=== PATIENT | female | born 1960 | race Caucasian/White ===

== ENCOUNTER → 2023-04-24 09:10 | Outpatient (REF) | payer BC, SELFPAY | LOC: HWRAD 09:10 | PROVIDERS: ATTENDING PHYSICIAN Physician Assistant; FAMILY PHYSICIAN Nurse Practitioner Family | DX: E83.52 Hypercalcemia (principal); E55.9 Vitamin D deficiency, unspecified; E34.9 Endocrine disorder, unspecified | CPT/HCPCS: 77080; 77081 ==

== ENCOUNTER → 2023-05-01 07:11 | Outpatient (REF) | payer BC, SELFPAY | LOC: RAD 07:11 | PROVIDERS: ATTENDING PHYSICIAN Physician Assistant; FAMILY PHYSICIAN Nurse Practitioner Family | DX: E83.52 Hypercalcemia (principal); E59 Dietary selenium deficiency; E34.9 Endocrine disorder, unspecified | CPT/HCPCS: 76536; 78071; A9500 ==

== ENCOUNTER → 2023-05-27 10:05 | Outpatient (REF) | payer BC, SELFPAY ==
[2023-05-27 10:40] VITALS: BP 153/75; BP_SYST 65
== END ==
LOC: RADI 10:05
PROVIDERS: ATTENDING PHYSICIAN Nurse Practitioner Family
DX: E04.1 Nontoxic single thyroid nodule (principal)
CPT/HCPCS: 88173; 10005

== ENCOUNTER → 2023-07-31 11:48 | Outpatient (REF) | payer BC, SELFPAY | LOC: HWWDC 11:48 | PROVIDERS: ATTENDING PHYSICIAN Nurse Practitioner Family | DX: Z12.31 Encounter for screening mammogram for malignant neoplasm of breast (principal) | CPT/HCPCS: 77063; 77067 ==

== ENCOUNTER → 2023-08-03 10:07 | Outpatient (REF) | payer BC, SELFPAY | LOC: HWRAD 10:07 | PROVIDERS: ATTENDING PHYSICIAN Nurse Practitioner Family | DX: M54.12 Radiculopathy, cervical region (principal) | CPT/HCPCS: 72050 ==

== ENCOUNTER 2023-08-25 06:08 | Day surgery (SDC) | payer BC, SELFPAY ==
[2023-08-20 07:28] VITALS: BMI 37.4
[2023-08-20 09:02] LABS: INR 0.94; PT 12.6 Sec (11.4-14.6)
[2023-08-20 09:03] LABS: APTT 26.1 Sec (23.4-35.0)
[2023-08-20 09:16] LABS: Hematocrit 31.3 % (37.0-47.0); Hemoglobin 9.5 g/dL (12.0-16.0); Mean Corp Hgb Conc. 30.4 g/dL (33.0-37.0); Mean Corpuscular Hgb 23.1 pg (27.0-31.0); Mean Corpuscular Volume 76.2 fL (81.0-99.0); Platelet Count 319 10^3/uL (130-400); Red Blood Cell Count 4.11 10^6/uL (4.20-5.40); White Blood Cell Count 3.9 10^3/uL (4.8-10.8)
[2023-08-20 09:26] LABS: ALT (SGPT) 26 U/L (0-35); AST (SGOT) 34 U/L (14-36); Albumin 4.1 g/dl (3.5-5.0); Alkaline Phosphatase 104 U/L (38-126); Blood Urea Nitrogen 10 mg/dl (7-17); Carbon Dioxide 29 mmol/L (22-30); Chloride 104 mmol/L (98-107); Estimated Creatinine Clearance > 125 ml/min; Glucose 92 mg/dl (70-99); Potassium 5.1 mmol/L (3.5-5.1); Sodium 137 mmol/L (135-145); Total Bilirubin 0.6 mg/dl (0.2-1.3); Total Protein 6.5 g/dl (6.3-8.2); eGFR > 60.00
--- NOTE | 2023-08-21 10:00 | SUR.OPER ---
Patients 08/19 hgb 9.5, Eli @ Dr. Moreno office notified
--- NOTE | 2023-08-21 14:14 | PTCARENOTE ---
Dr. Siegel notified of patients 9.5 hgb collected 08/19- no additional interventions required
[2023-08-25] VITALS (14 sets, daily range): BP systolic 100–140; BP diastolic 36–78; BMI 37.4
[2023-08-25] MEDS: NEURONTIN 300 MG PO (06:38)
[2023-08-25] MEDS: TYLENOL 1000 MG PO (06:38)
[2023-08-25] MEDS: NORMOSOL-R 1000 IV (06:38)
[2023-08-25] MEDS: HEPARIN 5000 UNITS SC (06:39)
[2023-08-25 08:31] LABS: Turbo PTH 221.8 pg/ml (13.6-85.8)
[2023-08-25 10:01] LABS: Turbo PTH 165.1 pg/ml (13.6-85.8)
[2023-08-25 10:21] LABS: Turbo PTH 32.8 pg/ml (13.6-85.8)
[2023-08-25] MEDS: SUBLIMAZE 25 MCG IV ×2 (10:34→10:52)
--- NOTE | 2023-08-25 10:47 | OR.RPT ---
Operative Report
Operative Report
Patient Name: Tina Rogers
Date of : 1960
Date of Operation: August 25, 2023
Preoperative Diagnosis: �Hyperparathyroidism - E210
Postoperative Diagnosis: Same
Surgeon: Jacobo Larson M.D.
Operation: Neck exploration, right inferior, superior, and left inferior parathyroidectomy - 19616
Anesthesia: GET
Estimated Blood Loss: 10 cc
Drains: None
Specimen: �right superior and inferior, left inferior neck nodules, rule out parathyroid adenomas
Complications: �None
Procedure:
The patient was taken to the operating room and placed in the usual supine position. After adequate general endotracheal anesthesia was established, the patient's neck was extended, prepped, and draped in the typical sterile fashion. A 4 cm
transcervical incision was made two fingerbreadths above the sternal notch. The skin incision was made with the #15 blade, and this was taken through the skin into the subcutaneous tissue. The underlying platysma muscle was divided, and subplatysmal
flaps were created superiorly to the thyroid cartilage and inferiorly to the sternal notch. Strap muscles were identified and at the midline.
Attention was turned to the patient's right side of the neck. The right thyroid lobe was mobilized medially. During this process, the right recurrent laryngeal nerve was identified and preserved throughout the surgery. The right upper neck nodule
was identified and noted to be enlarged, excised, and sent to the pathology department, which showed a hypercellular parathyroid gland, but the intraoperative PTH levels failed to normalized. Therefore, somewhat enlarged right inferior parathyroid
gland was excised. Unfortunately, the PTH level remained high.
The attention was turned to the left side of the neck. The left thyroid lobe was mobilized medially. During this process, the left recurrent laryngeal nerve was identified and preserved throughout the surgery. The two abutting left lower neck
nodules were identified and noted to be enlarged, excised, and sent to the pathology department, which showed a hypercellular parathyroid gland. The intraoperative PTH levels normalized.fter obtaining adequate hemostasis, the strap muscles were
reapproximated with #3-0 Vicryl in a running fashion. The platysma muscle was reapproximated with #3-0 Vicryl in an interrupted fashion, and the skin was approximated with #4-0 Monocryl in a running subcuticular fashion. The Steri-Strips and sterile
dressings were placed. The patient tolerated the procedure well. The final instrument, needle, and sponge counts were correct. The patient was extubated and transferred to the PACU.
== END 2023-08-25 13:35 | disposition home or self-care (01) ==
LOC: SDS 06:08
PROVIDERS: ATTENDING PHYSICIAN Surgery; FAMILY PHYSICIAN Nurse Practitioner Family; OTHER PHYSICIAN Family Medicine
DX: D35.1 Benign neoplasm of parathyroid gland (principal); E21.3 Hyperparathyroidism, unspecified
CPT/HCPCS: 60500; 88305; 88332; 36415; 80053; 83970; 85027; 85610; 85730; 88331; 93005

== ENCOUNTER 2023-09-15 16:38 | Emergency (ER) | payer BC, SELFPAY ==
[2023-09-15 17:04] LABS: % Basophils 0.7 % (0-2); % Eosinophils 2.1 % (0-6); % Immature Granulocytes 0.1 % (0-0.5); % Lymphocytes 33.1 % (20.5-51.1); % Monocytes 9.9 % (1.7-9.3); % Neutrophils 54.1 % (42.2-75.2); Absolute Basophils 0.1 10^3/uL (0-0.2); Absolute Eosinophils 0.2 10^3/uL (0-0.7); Absolute Lymphocytes 2.3 10^3/uL (1.2-3.4); Absolute Monocytes 0.7 10^3/uL (0.1-0.6); Absolute Neutrophils 3.8 10^3/uL (1.4-6.5); Hematocrit 30.7 % (37.0-47.0); Hemoglobin 9.6 g/dL (12.0-16.0); Mean Corp Hgb Conc. 31.3 g/dL (33.0-37.0); Mean Corpuscular Hgb 22.9 pg (27.0-31.0); Mean Corpuscular Volume 73.1 fL (81.0-99.0); Mean Platelet Volume 10.1 fL (7.4-10.4); Nucleated Red Blood Cells % 0 %; Platelet Count 467 10^3/uL (130-400); Red Cell Dist. Width 16.9 % (11.5-14.5); White Blood Cell Count 7.1 10^3/uL (4.8-10.8)
[2023-09-15 17:14] LABS: ALT (SGPT) 36 U/L (0-35); AST (SGOT) 32 U/L (14-36); Albumin 4.4 g/dl (3.5-5.0); Alkaline Phosphatase 165 U/L (38-126); Blood Urea Nitrogen 18 mg/dl (7-17); Calcium 9.7 mg/dl (8.4-10.2); Carbon Dioxide 23 mmol/L (22-30); Chloride 104 mmol/L (98-107); Glucose 99 mg/dl (70-99); Potassium 5.3 mmol/L (3.5-5.1); Sodium 135 mmol/L (135-145); Total Bilirubin 0.6 mg/dl (0.2-1.3); Total Protein 7.2 g/dl (6.3-8.2); eGFR > 60.00
[2023-09-15 17:30] LABS: Erythrocyte Sed Rate 45 mm/hour (0-20)
[2023-09-15 19:24] LABS: C-Reactive Protein < 5.00 mg/L (0.0-10.00)
[2023-09-15 19:46] VITALS: BP 145/89
[2023-09-15] MEDS: MOTRIN 600 MG PO (20:09)
--- NOTE | 2023-09-15 20:31 | ED.GENMED ---
History of Present Illness
<Gloria Grant NP - Last Filed: 09/15/23 23:13>
General
Chief Complaint: Musculo-Skeletal Complaint
Source: patient
Exam Limitations: none
Time Seen by Provider: 09/15/23 17:49
Nursing documentation reviewed up to this point in time: agreed with
History of Present Illness
History of Present Illness:
Patient to ED wtih complaint of rash to bilateral lower legs, pain and swelling to right ankle. Symptoms started 3 days ago. Denies fever/chills. No prior history of same. Brought to ED by spouse for eval.
Past History
<Gloria Grant NP - Last Filed: 09/15/23 23:13>
Past History
ED Past Medical History: Psychiatric (depr) and Other (anemia, urinary freq/urgency, OA)
ED Past Surgical History: Gynecological, Urological and Other (Gastric bypass, incisional hernia with mesh also hernia mesh repair and removal)
Social History
Tobacco: Non-smoker
Alcohol: Occasional
Drug: None
Personal:
Living: with family
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
Family History
Family History: Other (Stroke, hypertension, diabetes in her father thyroid cancer and a CVA in her mother)
Review of Systems
<Gloria Garnt NP - Last Filed: 09/15/23 23:13>
Review of Systems
Allergies reviewed?: Yes
All Other Systems: ROS reviewed and negative except as documented in HPI and ROS
Constitutional: Reports no symptoms
EENT: Reports no symptoms
Respiratory: Reports no symptoms
Cardiac: Reports no symptoms
ABD/GI: Reports no symptoms
: Reports no symptoms
Musculoskeletal: Reports joint pain (pain and swelling to right ankle)
Skin: Reports other (red, raised patches to bilateral lower legs. Appearance of insect bites. No pain or itching.)
Neurological: Reports no symptoms
Psychiatric: Reports no symptoms
Phy Exam
<Gloria Grant NP - Last Filed: 09/15/23 23:13>
General Physical Exam
General Presentation: mild distress
General age: appears stated age
General Skin: warm and dry
General Habitus: normal
General Mental: alert
Cardiovascular Exam
Cardiovascular Exam: regular rate/rhythm
Pulmonary Exam
Pulmonary Exam: no respiratory distress and chest non tender
Musculoskeletal Exam
Musculoskeletal Exam: neuro vasc intact and other (right lat ankle pain and swelling. Achilles intact. No foot pain.)
Skin Exam
Skin Exam: other (BLE with scattered red raised patches similar to the appearance of insect bites. No pain or itching. No discharge.)
Psychiatric Exam
Psychiatric Exam: normal mood/affect
Course
<Gloria Grant [employer]ING [employer]ACHER - Last Filed: 09/15/23 23:13>
Orders/Labs/Results
Orders:
Orders
09/15/23 16:52
C-Reactive Protein Urgent
Comment: ADD ON
Complete Blood Count/With Diff Urgent
Comprehensive Metabolic Panel Urgent
Sed Rate [Erythrocyte Sed Rate] Urgent
09/15/23 18:25
Add On- LAB Urgent
Tests Added?: sed rate, crp
09/15/23 18:26
US Periph Venous LOWER Ext RT Urgent
Comment:
Reason For Exam: pain and swellling RLE
09/15/23 20:00
Ibuprofen [Motrin] 600 mg PO NOW STA
09/15/23 20:29
Cephalexin Monohydrate [Keflex] 500 mg PO NOW STA
Dexamethasone Pf [Decadron] 10 mg PO NOW STA
Abnormal Lab Results
09/15/23
16:52
Hgb 9.6 L g/dL
(12.0-16.0)
Hct 30.7 L %
(37.0-47.0)
MCV 73.1 L fL
(81.0-99.0)
MCH 22.9 L pg
(27.0-31.0)
MCHC 31.3 L g/dL
(33.0-37.0)
RDW 16.9 H %
(11.5-14.5)
Plt Count 467 H 10^3/uL
(130-400)
Absolute Monos (auto) 0.7 H 10^3/uL
(0.1-0.6)
Monocytes % 9.9 H %
(1.7-9.3)
ESR 45 H mm/hour
(0-20)
Potassium 5.3 H mmol/L
(3.5-5.1)
BUN 18 H mg/dl
(7-17)
ALT 36 H U/L
(0-35)
Alkaline Phosphatase 165 H U/L
(38-126)
09/15/23 16:52
09/15/23 16:52
Vital Signs
Initial and Last Documented VS:
Initial Vital Signs
Temp Pulse Resp Pulse Ox
98.1 F 85 16 100
09/15/23 16:44 09/15/23 16:44 09/15/23 16:44 09/15/23 16:44
Last Documented Vital Signs
Temp Pulse Resp BP Pulse Ox
98.1 F 77 18 133/74 96
09/15/23 16:44 09/15/23 20:55 09/15/23 20:55 09/15/23 20:55 09/15/23 20:55
<Josefa Curran, DO - Last Filed: 09/16/23 19:08>
Orders/Labs/Results
Orders:
Orders
09/15/23 16:52
C-Reactive Protein Urgent
Comment: ADD ON
Complete Blood Count/With Diff Urgent
Comprehensive Metabolic Panel Urgent
Sed Rate [Erythrocyte Sed Rate] Urgent
09/15/23 18:25
Add On- LAB Urgent
Tests Added?: sed rate, crp
09/15/23 18:26
US Periph Venous LOWER Ext RT Urgent
Comment:
Reason For Exam: pain and swellling RLE
09/15/23 20:00
Ibuprofen [Motrin] 600 mg PO NOW STA
09/15/23 20:29
Cephalexin Monohydrate [Keflex] 500 mg PO NOW STA
Dexamethasone Pf [Decadron] 10 mg PO NOW STA
Abnormal Lab Results
09/15/23
16:52
Hgb 9.6 L g/dL
(12.0-16.0)
Hct 30.7 L %
(37.0-47.0)
MCV 73.1 L fL
(81.0-99.0)
MCH 22.9 L pg
(27.0-31.0)
MCHC 31.3 L g/dL
(33.0-37.0)
RDW 16.9 H %
(11.5-14.5)
Plt Count 467 H 10^3/uL
(130-400)
Absolute Monos (auto) 0.7 H 10^3/uL
(0.1-0.6)
Monocytes % 9.9 H %
(1.7-9.3)
ESR 45 H mm/hour
(0-20)
Potassium 5.3 H mmol/L
(3.5-5.1)
BUN 18 H mg/dl
(7-17)
ALT 36 H U/L
(0-35)
Alkaline Phosphatase 165 H U/L
(38-126)
08/06/24 16:52
09/15/23 16:52
Vital Signs
Initial and Last Documented VS:
Initial Vital Signs
Temp Pulse Resp Pulse Ox
98.1 F 85 16 100
09/15/23 16:44 09/15/23 16:44 09/15/23 16:44 09/15/23 16:44
Last Documented Vital Signs
Temp Pulse Resp BP Pulse Ox
98.1 F 77 18 133/74 96
09/15/23 16:44 09/15/23 20:55 09/15/23 20:55 09/15/23 20:55 09/15/23 20:55
<Gloria Grant NP - Last Filed: 09/15/23 23:13>
*Radiology
Radiology exam reviewed: radiology read reviewed
*Pulse Oximetry
Patient hypoxic: no
*Critical Care Note
Total Time (30-74mins, 75-104mins- exclusive of procedures): Not Applicable
<Gloria Grant NP - Last Filed: 09/15/23 23:13>
Update Note
Update Note:
Case discussed with Dr. Curran who also evaluated this patient. Labs, imaging reviewed. No findings to explain her symptoms. She remains afebrile. Non toxic appearing. Given dose of decadron in dept and will continue prednisone taper. Placed on
Keflex 500mg tid. She is discharged home, close followup with PCP. Given instructions on s/s to return to ED and she is agreeable to plan.
ED Attending Note
<Gloria Grant NP - Last Filed: 09/15/23 23:13>
-
Portions of this chart may have been created with voice recognition software.� Occasional wrong word or��sound alike� substitutions may have occurred due to the inherent limitations of voice recognition software.
<Josefa Curran DO - Last Filed: 09/16/23 19:08>
ED Attending Note
Patient seen and examined by attending physician: Yes
I performed the substantive portion of visit, reviewed & personally made and approve the management plan that is documented in note by myself or ERON.: Yes
I performed a history and physical exam of patient and discussed management with resident, I reviewed resident's note and agree with documented findings and plan of care.: Yes
ED Attending Note:
Patient seen and evaluated at bedside, 63-year-old female presenting with rash to bilateral lower extremities with swelling and pain to the ankle. Patient reports she noticed red lesions about 4 days ago which have since been worsening. She is not
having swelling to her right ankle, increased pain, particular the ambulation. Denies any new exposures or time outside, or any known bug bites. Denies ever having this in the past. Denies any new detergents or ingestion of foods. Denies any
itching. Denies any fever systemic symptoms. Vital signs within normal limits.
On exam, patient is very well-appearing, nontoxic. On examination of her lower extremities, multiple red circumferential lesions. Appear consistent with urticaria versus potential bug bite such as mosquito bite. Slightly tender to palpation.
Increased welling to the right lower extremity comparison to left lower extremity, particularly at the ankle. Range of motion however is intact with distal sensation and pulses intact. Suspect contact dermatitis versus allergic component to
symptoms, versus reaction to bug bite. Erythema dose up is also consideration. Patient denies any throat pain. No additional systemic symptoms or clear sign of bacterial infection. Given asymmetrical swelling, ultrasound obtained to rule out
DVT, which is negative. Patient had screening laboratory analysis, no leukocytosis, normal inflammatory marker. Without present concern for a septic joint arthritis. Plan for oral steroid and Keflex in the event of possible infectious component
given swelling. Patient agreeable plan. Advise close follow-up for reassessment to ensure interval improvement. Patient verbalized understanding
Discharge Plan
Departure
Patient Disposition: Home (Routine Discharge)
Date of Disposition: 09/15/23
Time of Disposition: 20:30
Patient with high blood pressure during this ER visit?: No
Condition: Good
Covid-19: Not Applicable
Discharge Problem:
Rash, skin, Swelling of ankle
Instructions: Skin Rash ED
Prescriptions:
New
cephalexin 500 mg capsule
500 mg PO TID 10 Days Qty: 30 0RF
No Action
trazodone 50 MG tablet
50 mg PO HS
mirabegron [Myrbetriq] 50 MG tablet extended release 24 hr
50 mg PO DAILY
montelukast 10 mg Tablet
10 mg PO HS
doxycycline hyclate 20 mg Tablet
20 mg PO BID
solifenacin 10 mg Tablet
10 mg PO DAILY
Referrals:
Tom Simeon CRNP [Family Provider] - Follow up in 2-3 days
Stand Alone Forms: Return to Work
Activity Restrictions/Additional Instructions:
Return to the emergency department immediately for any changes in/worsening of your symptoms
Interventions
Interventions:
*Risk Screen - Suicide Last Done: 09/15/23 16:44
*General Assessment Last Done: 09/15/23 17:38
*Neglect/Abuse Screening Last Done: 09/15/23 16:44
ED- Fall Risk Assessment Last Done: 09/15/23 16:44
*ED COVID-19 Vaccine History Last Done: 09/15/23 16:44
*Nursing Disposition Last Done: 09/15/23 20:55
ED-Musculoskeletal Assessment Last Done: 09/15/23 17:38
Discharge Date and Time
Discharge Date/Time: 09/15/23 20:56
Print Language: LAO
[2023-09-15] MEDS: KEFLEX 500 MG PO (20:48)
[2023-09-15] MEDS: DECADRON 10 MG PO (20:48)
[2023-09-15 20:53] VITALS: BP 133/74
[2023-09-15 20:55] VITALS: BP 133/74
== END 2023-09-15 20:56 | disposition home or self-care (01) ==
LOC: EMR 16:38
PROVIDERS: EMERGENCY PHYSICIAN Student in an Organized Health Care Education/Training Program; FAMILY PHYSICIAN Nurse Practitioner Family
DX: R21 Rash and other nonspecific skin eruption (principal); R22.41 Localized swelling, mass and lump, right lower limb; Z82.3 Family history of stroke; Z82.49 Family history of ischemic heart disease and other diseases of the circulatory system; Z83.3 Family history of diabetes mellitus; Z98.84 Bariatric surgery status
CPT/HCPCS: 99284; 80053; 85025; 85652; 86140; 93971

== ENCOUNTER → 2023-09-16 14:19 | Outpatient (REF) | payer BC, SELFPAY | LOC: HWRAD 14:19 | PROVIDERS: ATTENDING PHYSICIAN Nurse Practitioner Family | DX: R21 Rash and other nonspecific skin eruption (principal) | CPT/HCPCS: 71046 ==

== ENCOUNTER → 2023-12-07 06:40 | Day surgery (SDC) | payer BC, SELFPAY | LOC: GI 06:40 | PROVIDERS: ATTENDING PHYSICIAN Internal Medicine | DX: D50.9 Iron deficiency anemia, unspecified (principal); K57.30 Diverticulosis of large intestine without perforation or abscess without bleeding; K64.9 Unspecified hemorrhoids; E53.8 Deficiency of other specified B group vitamins; Z98.84 Bariatric surgery status; Z98.0 Intestinal bypass and anastomosis status; K29.50 Unspecified chronic gastritis without bleeding | CPT/HCPCS: 45378; 43239; 88305; 88342 ==

== ENCOUNTER → 2023-12-12 08:20 | Outpatient (REF) | payer BC, SELFPAY | LOC: RAD 08:20 | PROVIDERS: ATTENDING PHYSICIAN Internal Medicine; FAMILY PHYSICIAN Nurse Practitioner Family | DX: T18.9XXA Foreign body of alimentary tract, part unspecified, initial encounter (principal) | CPT/HCPCS: 74019 ==

== ENCOUNTER → 2023-12-31 08:56 | Outpatient (REF) | payer BC, SELFPAY | LOC: HWRAD 08:56 | PROVIDERS: ATTENDING PHYSICIAN Physician Assistant; FAMILY PHYSICIAN Nurse Practitioner Family | DX: L52 Erythema nodosum (principal); M79.89 Other specified soft tissue disorders; R76.8 Other specified abnormal immunological findings in serum | CPT/HCPCS: 73610; 73630; 93970 ==

== ENCOUNTER → 2024-01-27 18:13 | Outpatient (REF) | payer BC, SELFPAY | LOC: MRI 3T 18:13 | PROVIDERS: ATTENDING PHYSICIAN Internal Medicine; FAMILY PHYSICIAN Nurse Practitioner Family | DX: L52 Erythema nodosum (principal); D50.9 Iron deficiency anemia, unspecified; Z87.19 Personal history of other diseases of the digestive system | CPT/HCPCS: 72197; 74183; A9585 ==

== ENCOUNTER → 2024-02-05 12:34 | Outpatient (REF) | payer BC, SELFPAY | LOC: HWRAD 12:34 | PROVIDERS: ATTENDING PHYSICIAN Physician Assistant; FAMILY PHYSICIAN Nurse Practitioner Family | DX: M77.42 Metatarsalgia, left foot (principal); M79.89 Other specified soft tissue disorders | CPT/HCPCS: 73700 ==

== ENCOUNTER → 2024-03-11 08:41 | Outpatient (REF) | payer BC, SELFPAY ==
[2024-03-11 08:58] LABS: % Basophils 0.5 % (0-2); % Eosinophils 2.8 % (0-6); % Immature Granulocytes 0.3 % (0-0.5); % Lymphocytes 41.1 % (20.5-51.1); % Monocytes 9.3 % (1.7-9.3); Absolute Eosinophils 0.1 10^3/uL (0-0.7); Absolute Lymphocytes 1.6 10^3/uL (1.2-3.4); Absolute Monocytes 0.4 10^3/uL (0.1-0.6); Absolute Neutrophils 1.8 10^3/uL (1.4-6.5); Hematocrit 40.5 % (37.0-47.0); Hemoglobin 13.3 g/dL (12.0-16.0); Mean Corp Hgb Conc. 32.8 g/dL (33.0-37.0); Mean Corpuscular Hgb 30.6 pg (27.0-31.0); Mean Corpuscular Volume 93.3 fL (81.0-99.0); Mean Platelet Volume 10.9 fL (7.4-10.4); Platelet Count 298 10^3/uL (130-400); Red Blood Cell Count 4.34 10^6/uL (4.20-5.40); Red Cell Dist. Width 13.1 % (11.5-14.5)
== END ==
LOC: OIDL 08:41
PROVIDERS: ATTENDING PHYSICIAN Nurse Practitioner Adult Health
DX: D50.9 Iron deficiency anemia, unspecified (principal); E53.9 Vitamin B deficiency, unspecified
CPT/HCPCS: 85025

== ENCOUNTER → 2024-03-25 11:27 | Outpatient (REF) | payer BC, SELFPAY ==
[2024-03-25 08:54] LABS: % Basophils 0.4 % (0-2); % Eosinophils 1.3 % (0-6); % Lymphocytes 37.9 % (20.5-51.1); % Monocytes 7.1 % (1.7-9.3); % Neutrophils 53.3 % (42.2-75.2); Absolute Eosinophils 0.1 10^3/uL (0-0.7); Absolute Lymphocytes 1.8 10^3/uL (1.2-3.4); Absolute Monocytes 0.3 10^3/uL (0.1-0.6); Absolute Neutrophils 2.5 10^3/uL (1.4-6.5); Hematocrit 42.9 % (37.0-47.0); Mean Corp Hgb Conc. 32.6 g/dL (33.0-37.0); Mean Corpuscular Hgb 31.3 pg (27.0-31.0); Mean Corpuscular Volume 95.8 fL (81.0-99.0); Mean Platelet Volume 10.8 fL (7.4-10.4); Platelet Count 288 10^3/uL (130-400); Red Blood Cell Count 4.48 10^6/uL (4.20-5.40); White Blood Cell Count 4.7 10^3/uL (4.8-10.8)
== END ==
LOC: OIDL 11:27
PROVIDERS: ATTENDING PHYSICIAN Nurse Practitioner Adult Health
DX: D50.9 Iron deficiency anemia, unspecified (principal)
CPT/HCPCS: 85025

== ENCOUNTER → 2024-04-15 10:08 | Outpatient (REF) | payer BC, SELFPAY | LOC: HWRAD 10:08 | PROVIDERS: ATTENDING PHYSICIAN Nurse Practitioner Family | DX: M25.551 Pain in right hip (principal); R20.2 Paresthesia of skin | CPT/HCPCS: 72110; 73502 ==

== ENCOUNTER 2024-05-11 10:56 | Emergency (ER) | payer BC, SELFPAY ==
[2024-05-11 11:04] VITALS: BP 163/88
[2024-05-11 11:59] VITALS: BMI 40.5
[2024-05-11 12:11] VITALS: BP 144/63
[2024-05-11 12:24] LABS: % Basophils 0.8 % (0-2); % Eosinophils 1.3 % (0-6); % Lymphocytes 49.6 % (20.5-51.1); % Monocytes 5.9 % (1.7-9.3); % Neutrophils 42.4 % (42.2-75.2); Absolute Eosinophils 0.1 10^3/uL (0-0.7); Absolute Lymphocytes 1.9 10^3/uL (1.2-3.4); Absolute Monocytes 0.2 10^3/uL (0.1-0.6); Absolute Neutrophils 1.7 10^3/uL (1.4-6.5); Hematocrit 40.6 % (37.0-47.0); Hemoglobin 13.7 g/dL (12.0-16.0); Mean Corp Hgb Conc. 33.7 g/dL (33.0-37.0); Mean Corpuscular Hgb 31.5 pg (27.0-31.0); Mean Corpuscular Volume 93.3 fL (81.0-99.0); Mean Platelet Volume 11.3 fL (7.4-10.4); Nucleated Red Blood Cells % 0 %; Platelet Count 252 10^3/uL (130-400); Red Blood Cell Count 4.35 10^6/uL (4.20-5.40); Red Cell Dist. Width 12.6 % (11.5-14.5); White Blood Cell Count 3.9 10^3/uL (4.8-10.8)
[2024-05-11 12:35] LABS: ALT (SGPT) 39 U/L (0-35); AST (SGOT) 33 U/L (14-36); Albumin 4.2 g/dl (3.5-5.0); Alkaline Phosphatase 98 U/L (38-126); Blood Urea Nitrogen 13 mg/dl (7-17); Calcium 9.2 mg/dl (8.4-10.2); Carbon Dioxide 30 mmol/L (22-30); Chloride 104 mmol/L (98-107); Estimated Creatinine Clearance > 125 ml/min; Glucose 95 mg/dl (70-99); Potassium 4.4 mmol/L (3.5-5.1); Sodium 141 mmol/L (135-145); Total Bilirubin 0.7 mg/dl (0.2-1.3); Total Protein 6.6 g/dl (6.3-8.2); eGFR > 60.00
[2024-05-11 12:46] LABS: Troponin I < 0.012 ng/ml
[2024-05-11 13:00] VITALS: BP 147/82
--- NOTE | 2024-05-11 13:02 | ED.GENMED ---
History of Present Illness
General
Chief Complaint: Numbness
Source: patient
Exam Limitations: none
Time Seen by Provider: 05/11/24 12:23
Nursing documentation reviewed up to this point in time: agreed with
History of Present Illness
History of Present Illness:
Patient is a 63-year-old female with past medical history of hyperparathyroidism, status post parathyroidectomy August/2023, erythema nodosum who presents to the ER for evaluation she was awoken this morning at 4 AM with sudden right arm numbness
tingling and pain. She got a shower thinking that would relieve her symptoms and then at 5:30 AM she had symptoms radiate to her left arm. She now reports she has sharp pins and needle and numb feeling that are causing a lot of pain to both of her
arms. She does feel tired and nauseous from this. She denies any weakness. She denies any symptoms to legs. She denies any headache. She recently had parathyroid surgery in August .
Past History
Past History
ED Past Medical History: Psychiatric (depr) and Other (anemia, urinary freq/urgency, OA)
ED Past Surgical History: Gynecological, Urological and Other (Gastric bypass, incisional hernia with mesh also hernia mesh repair and removal)
Social History
Tobacco: Non-smoker
Alcohol: Occasional
Drug: None
Personal:
Living: with family
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
Family History
Family History: Other (Stroke, hypertension, diabetes in her father thyroid cancer and a CVA in her mother)
Review of Systems
Review of Systems
Allergies reviewed?: Yes
All Other Systems: ROS reviewed and negative except as documented in HPI and ROS
Constitutional: Reports no symptoms; Denies fever, fatigue or chills
Respiratory: Reports no symptoms
Cardiac: Reports no symptoms; Denies chest pain or palpitations
ABD/GI: Reports no symptoms
: Reports no symptoms
Musculoskeletal: Reports no symptoms
Skin: Reports no symptoms
Neurological: Reports numbness (numbness 'burning pain' to b/l arms and hands; denies extremity weakness )
Psychiatric: Reports no symptoms
Phy Exam
General Physical Exam
General Presentation: no apparent distress
General age: appears stated age
General Skin: warm and dry
General Habitus: normal
General Mental: alert
General Hydration: appears well hydrated
ENT Exam
ENT Exam: EOMI
Eye Exam
Eye Exam: PERRL and EOMI
Eye Exam General: PERRL: bilateral and EOM intact: bilateral
Pupil Exam: Bilateral: round and reactive
Cardiovascular Exam
Cardiovascular Exam: regular rate/rhythm, no murmur and normal peripheral pulses
Pulmonary Exam
Pulmonary Exam: lungs clear and no respiratory distress
Neurological Exam
Neurological Exam: alert, oriented x3, no motor deficits, no sensory deficits and other (Intact strength and sensation to bilateral lower extremities)
[place] Coma Scale
Eye Opening: Spontaneous
Verbal Response: Oriented
Motor Response: Obeys Commands
GCS Total Score: 15
Cerebellar
Cerebellar Function: normal finger to nose
Musculoskeletal Exam
Musculoskeletal Exam: full ROM
Skin Exam
Skin Exam: normal color and warm/dry
Psychiatric Exam
Psychiatric Exam: normal mood/affect
Course
Orders/Labs/Results
Orders:
Orders
05/11/24 10:58
ECG [Electrocardiogram (*1)] Urgent
Reason for Study: Chest Pain
EKG- Treatment ONCE
05/11/24 12:14
C-Reactive Protein Urgent
Comment: ADD ON
CMP [Comprehensive Metabolic Panel] Urgent
Complete Blood Count/With Diff Urgent
Erythrocyte Sed Rate Urgent
Comment: ADD ON
Troponin I Urgent
05/11/24 13:19
Ketorolac [Toradol] 15 mg IV NOW STA
05/11/24 13:22
CT Head W/o Iv Contrast Urgent
Comment:
Reason For Exam: paresthesias
05/11/24 13:26
Add On- LAB Urgent
Tests Added?: sed rate, and crp
Abnormal Lab Results
05/11/24
12:14
WBC 3.9 L 10^3/uL
(4.8-10.8)
MCH 31.5 H pg
(27.0-31.0)
MPV 11.3 H fL
(7.4-10.4)
ALT 39 H U/L
(0-35)
05/11/24 12:14
05/11/24 12:14
Vital Signs
Initial and Last Documented VS:
Initial Vital Signs
Temp Pulse Resp BP Pulse Ox
98.1 F 63 16 163/88 98
05/11/24 11:04 05/11/24 11:04 05/11/24 11:04 05/11/24 11:04 05/11/24 11:04
Last Documented Vital Signs
Temp Pulse Resp BP Pulse Ox
98.1 F 63 16 152/76 94
05/11/24 11:04 05/11/24 11:04 05/11/24 11:04 05/11/24 14:00 05/11/24 14:30
Lapidary Apprentice consulted with Physician
Lapidary Apprentice consulted with physician?: Yes
Name of Physician Consulted: Yeni
MDM/Problems Addressed
Differential Diagnosis Includes:
not limited to paresthesias, MS less likely ACS
MDM/Problems Addressed:
As documented patient is a 63-year-old female who presented with burning pain to both arms. Started with burning pain and numbness to right arm and traveled to the left arm about an hour after since early this morning. She had no associated chest
pain shortness of breath. She was sent by her family doctor to ensure this was not a cardiac event. She has no cardiac history. No chest pain or shortness of breath. She denies any weakness. There is no weakness on exam she is no neurological
deficits on exam .she complains of a numb but burning feeling in both of her arms /hands and feels uncomfortable. She did not take anything. She was given a dose of IV Toradol which did improve her symptoms though she still has mild burning pain.
No acute findings on CAT scan no acute findings on EKG negative cardiac troponin sed rate normal CRP pending. Case reviewed with ED physician.
I did contact her primary nurse practitioner who sent her to the ER will arrange for outpatient follow-up she may need MRI or more additional testing for other possible causes including MS. I did review this with patient and daughter. She is
stable for discharge home.
*Radiology
Radiology exam reviewed: radiology read reviewed
*Pulse Oximetry
Patient hypoxic: no
*EKG
Interpreted by ED Provider?: Yes
Comparison EKG: no changes
Heart Rate: 62
Rate: normal
Rhythm: sinus
Ischemia: no ischemia
*Critical Care Note
Total Time (30-74mins, 75-104mins- exclusive of procedures): Not Applicable
ED Attending Note
-
Portions of this chart may have been created with voice recognition software.� Occasional wrong word or��sound alike� substitutions may have occurred due to the inherent limitations of voice recognition software.
Discharge Plan
Departure
Patient Disposition: Home (Routine Discharge)
Date of Disposition: 05/11/24
Time of Disposition: 16:01
Patient with high blood pressure during this ER visit?: Yes
Condition: Fair
Covid-19: Not Applicable
Discharge Problem:
paresthesias
Instructions: Paresthesia (DC), BLOOD PRESSURE
Prescriptions:
No Action
trazodone 50 MG tablet
50 mg PO HS
mirabegron [Myrbetriq] 50 MG tablet extended release 24 hr
50 mg PO DAILY
montelukast 10 mg Tablet
10 mg PO HS
doxycycline hyclate 20 mg Tablet
20 mg PO BID
solifenacin 10 mg Tablet
10 mg PO DAILY
cephalexin 500 mg capsule
500 mg PO TID 10 Days Qty: 30 0RF
Referrals:
Tom Simeon CRNP [Family Provider] -
Activity Restrictions/Additional Instructions:
Please follow-up with your primary care physician as soon as possible call today to make an appointment and return if any worsening of symptoms
Interventions
Interventions:
*Risk Screen - Suicide Last Done: 05/11/24 11:04
*General Assessment Last Done: 05/11/24 11:59
*Neglect/Abuse Screening Last Done: 05/11/24 11:59
*ED- Fall Risk Assessment Last Done: 05/11/24 11:59
*ED COVID-19 Vaccine History Last Done: 05/11/24 11:59
ED- Neurological Assessment Last Done: 05/11/24 11:59
Discharge Date and Time
Print Language: CROATIAN
[2024-05-11] MEDS: TORADOL 15 MG IV (13:23)
[2024-05-11 13:25] VITALS: BP 146/78
[2024-05-11 14:00] VITALS: BP 152/76
[2024-05-11 14:27] LABS: Erythrocyte Sed Rate 7 mm/hour (0-20)
[2024-05-11 16:16] LABS: C-Reactive Protein < 5.00 mg/L (0.0-10.00)
== END 2024-05-11 16:26 | disposition home or self-care (01) ==
LOC: EMR 10:56
PROVIDERS: Student in an Organized Health Care Education/Training Program; EMERGENCY PHYSICIAN Emergency Medicine; FAMILY PHYSICIAN Nurse Practitioner Family
DX: R20.2 Paresthesia of skin (principal); M79.602 Pain in left arm; M79.601 Pain in right arm; E89.2 Postprocedural hypoparathyroidism; Z82.3 Family history of stroke; Z82.49 Family history of ischemic heart disease and other diseases of the circulatory system; Z98.84 Bariatric surgery status
CPT/HCPCS: 96374; 99284; 70450; 80053; 84484; 85025; 85652; 86140; 93005

== ENCOUNTER → 2024-07-29 06:29 | Outpatient (REF) | payer BC, SELFPAY | LOC: RAD 06:29 | PROVIDERS: ATTENDING PHYSICIAN Physician Assistant; FAMILY PHYSICIAN Nurse Practitioner Family | DX: E04.2 Nontoxic multinodular goiter (principal); E55.9 Vitamin D deficiency, unspecified | CPT/HCPCS: 76536 ==

== ENCOUNTER → 2024-08-09 18:25 | Outpatient (REF) | payer BC, SELFPAY | LOC: WDC 18:25 | PROVIDERS: ATTENDING PHYSICIAN Nurse Practitioner Family | DX: Z12.31 Encounter for screening mammogram for malignant neoplasm of breast (principal) | CPT/HCPCS: 77063; 77067 ==